=== PATIENT | male | born 1990 | race African-American/Black ===

== ENCOUNTER 2018-08-20 01:31 | Emergency (ER) | payer OTHER ==
[~2018-08-20] VITALS: Ht 195.6 cm; Wt 117.9 kg
[~2018-08-20 01:31] MED LIST: BACTRIM DS TAB1 EACH PO; IBUPROFEN 600600 M1 PO; IBUPROFEN 800800 M1 PO; NORCO 5-325 TA1 EACH PO; PENICILLIN V P500 MG PO
[2018-08-20 02:28] LABS: ABSOLUTE NEUTROPHILS 4.7 thou/uL (1.4-8.2); BASOPHILS 0.7 % (0.0-2.0); EOSINOPHILS 1.3 % (0.0-3.0); HEMATOCRIT 44.1 % (42.0-52.0); LYMPHOCYTES 15.7 % (24.0-44.0); MCH 30.9 pg (26.0-34.0); MCV 90.7 fL (80.0-100.0); MONOCYTES 8.8 % (1.0-8.0); PLATELET COUNT 306 thou/uL (150-400); POLYS 73.5 % (36.0-66.0); RBC 4.87 mil/uL (4.50-6.00); RDW 14.2 % (10.5-14.5); WBC 6.4 thou/uL (4.0-11.0)
[2018-08-20 02:36] LABS: CALCIUM 9.7 mg/dL (8.5-10.1); CREATININE 1.4 mg/dL (0.7-1.3); POTASSIUM 3.7 mmol/L (3.5-5.1)
[2018-08-20 02:37] VITALS: BP 176/65
[2018-08-20 02:41] LABS: ALBUMIN 4.2 g/dL (3.4-5.0); TOTAL BILIRUBIN 0.4 mg/dL (<0.1-1.0)
[2018-08-20] MEDS ORDERED: KEFLEX500 M1 PO (02:45)
== END 2018-08-20 03:02 | disposition home or self-care (01) ==
LOC: ER 01:31
PROVIDERS: Emergency Medicine
DX: S00.561A Insect bite (nonvenomous) of lip, initial encounter (principal); R22.0 Localized swelling, mass and lump, head; R00.0 Tachycardia, unspecified; W57.XXXA Bitten or stung by nonvenomous insect and other nonvenomous arthropods, initial encounter; Y93.89 Activity, other specified; Y92.89 Other specified places as the place of occurrence of the external cause; Y99.8 Other external cause status

== ENCOUNTER 2021-01-25 20:52 | Emergency (ER) | payer OTHER ==
[~2021-01-25] VITALS: Ht 193 cm; Wt 122.5 kg
[~2021-01-25 20:52] MED LIST changes: +KEFLEX500 M1 PO
[2021-01-25] MEDS ORDERED: ASA81BEC PO (21:02)
[2021-01-25 23:07] LABS: HEMATOCRIT 43.6 % (42.0-52.0); HEMOGLOBIN 14.6 gm/dL (14.0-18.0); MCHC 33.4 g/dL (28.0-37.0); MCV 92.7 fL (80.0-100.0); RBC 4.71 mil/uL (4.50-6.00); RDW 14.2 % (10.5-14.5); WBC 6.1 thou/uL (4.0-11.0)
[2021-01-25 23:19] LABS: CREATININE 1.5 mg/dL (0.7-1.3); POTASSIUM 3.2 mmol/L (3.5-5.1)
[2021-01-26] MEDS ORDERED: HYDROCODON-ACE1 EAC5 PO (00:23)
[2021-01-26] MEDS ORDERED: NAPROSYN500 MG PO (00:23)
[2021-01-26] MEDS ORDERED: KEFLEX500 M1 PO (00:23)
[2021-01-26 01:08] VITALS: BP 196/116
[2021-01-29] MEDS ORDERED: PREDNISONE 20 M20 MG PO (14:15)
[2021-01-29] MEDS ORDERED: VALACYCLOVIR1000 MG PO (14:15)
== END 2021-01-26 01:08 | disposition home or self-care (01) ==
LOC: ER 20:52
PROVIDERS: Nurse Practitioner Family
DX: I10 Essential (primary) hypertension (principal); L03.211 Cellulitis of face; Z79.82 Long term (current) use of aspirin

== ENCOUNTER 2021-01-28 08:01 | Emergency (ER) | payer OTHER ==
[~2021-01-28] VITALS: Ht 193 cm; Wt 117.9 kg
[~2021-01-28 08:01] MED LIST changes: +ASA81BEC PO; +HYDROCODON-ACE1 EAC5 PO; +NAPROSYN500 MG PO
[2021-01-28] MEDS ORDERED: NORVASC5 M1 PO (09:51)
[2021-01-28 10:03] VITALS: BP 176/111
--- NOTE | 2021-01-28 13:41 | EKG ---
[facility] [place] [address] ELECTROCARDIOGRAM REPORT Name: DAYTON GAINESAMBROCIORoman Room #: [facility]P [facility] [id number] Admission: 01/28/21 Attend Phys: Discharge: 01/28/21 Date of : 86 Report #: [id number] [facility] ED Test Date: 2021-01-28 Test Time: 08:17:06 Pat Name: DAYTON GAINES Department: Room: Gender: [employer] Supervisor: VIVIANE : 1990 Requested By: Lance Rider Order Number: [id number] MD: Dl Dixon Measurements Intervals [place] Rate: 94 P: 28 [place]: 165 QRS: 0 QRSD: 85 T: 36 QT: 383 QTc: 479 Interpretive Statements Sinus rhythm LVH by voltage J Point elevation, probably due to LVH Borderline prolonged QT interval No previous ECG available for comparison Electronically Signed On 01-28-2021 13:41:22 TOP SCREW by Dl Dixon [email or web address] <ELECTRONICALLY SIGNED> By: Dl Dixon MD, [facility] 01/28/21 1341 0817 6 Dl Dixon MD, FACC /EPI
[2021-01-29] MEDS ORDERED: VALACYCLOVIR1000 MG PO (14:15)
[2021-01-29] MEDS ORDERED: PREDNISONE 20 M20 MG PO (14:15)
== END 2021-01-28 10:05 | disposition home or self-care (01) ==
LOC: ER 08:01
DX: G51.0 Bell's palsy (principal); I10 Essential (primary) hypertension; Z79.82 Long term (current) use of aspirin; Z79.899 Other long term (current) drug therapy

== ENCOUNTER 2021-02-07 10:30 | Emergency (ER) | payer OTHER ==
[~2021-02-07] VITALS: Ht 195.6 cm; Wt 117.9 kg
[~2021-02-07 10:30] MED LIST changes: +NORVASC5 M1 PO; +PREDNISONE 20 M20 MG PO; +VALACYCLOVIR1000 MG PO
[2021-02-07 11:21] LABS: HEMATOCRIT 43.3 % (42.0-52.0); HEMOGLOBIN 14.6 gm/dL (14.0-18.0); MCHC 33.6 g/dL (28.0-37.0)
[2021-02-07 11:23] LABS: ABSOLUTE NEUTROPHILS 2.6 thou/uL (1.4-8.2); BASOPHILS 1.1 % (0.0-2.0); EOSINOPHILS 0.6 % (0.0-3.0); LYMPHOCYTES 47.4 % (24.0-44.0); MCH 31.4 pg (26.0-34.0); MCV 93.4 fL (80.0-100.0); MONOCYTES 9.3 % (1.0-8.0); PLATELET COUNT 373 thou/uL (150-400); POLYS 41.6 % (36.0-66.0); RBC 4.64 mil/uL (4.50-6.00); RDW 14.2 % (10.5-14.5); WBC 6.3 thou/uL (4.0-11.0)
[2021-02-07 11:27] LABS: CALCIUM 8.8 mg/dL (8.5-10.1); CREATININE 1.4 mg/dL (0.7-1.3); POTASSIUM 3.4 mmol/L (3.5-5.1)
[2021-02-07 11:34] LABS: ALBUMIN 3.6 g/dL (3.4-5.0); TOTAL BILIRUBIN 0.3 mg/dL (0.2-1.0); TOTAL PROTEIN 7.7 g/dL (6.4-8.2)
[2021-02-07] MEDS ORDERED: ULTRAM 50MG TAB50 MG PO (11:37)
[2021-02-07] MEDS ORDERED: CLEOCIN HCL150 MG PO (11:37)
[2021-02-07 11:58] VITALS: BP 173/119
== END 2021-02-07 12:03 | disposition home or self-care (01) ==
LOC: ER 10:30
PROVIDERS: Emergency Medicine
DX: L03.211 Cellulitis of face (principal); Z79.82 Long term (current) use of aspirin; Z79.899 Other long term (current) drug therapy

== ENCOUNTER 2021-05-28 12:20 | Emergency (ER) | payer OTHER ==
[~2021-05-28] VITALS: Ht 195.6 cm; Wt 117.9 kg
[~2021-05-28 12:20] MED LIST changes: +CLEOCIN HCL150 MG PO; +ULTRAM 50MG TAB50 MG PO
[2021-05-28] MEDS ORDERED: NAPROSYN500 MG PO (12:50)
[2021-05-28 13:09] VITALS: BP 193/145
== END 2021-05-28 13:09 | disposition home or self-care (01) ==
LOC: ER 12:20
DX: M13.871 Other specified arthritis, right ankle and foot (principal); I10 Essential (primary) hypertension

== ENCOUNTER 2021-06-05 12:24 | Emergency (ER) | payer OTHER ==
[~2021-06-05] VITALS: Ht 195.6 cm; Wt 117.9 kg
[2021-06-05 13:01] LABS: HEMATOCRIT 43.5 % (42.0-52.0); HEMOGLOBIN 15.1 gm/dL (14.0-18.0); MCH 32.5 pg (26.0-34.0); MCHC 34.8 g/dL (28.0-37.0); MCV 93.4 fL (80.0-100.0); RBC 4.66 mil/uL (4.50-6.00); RDW 13.6 % (10.5-14.5); WBC 5.3 thou/uL (4.0-11.0)
[2021-06-05 13:09] LABS: CALCIUM 9.2 mg/dL (8.5-10.1); CREATININE 1.4 mg/dL (0.7-1.3); POTASSIUM 3.8 mmol/L (3.5-5.1)
[2021-06-05 13:15] LABS: TOTAL BILIRUBIN 0.5 mg/dL (0.2-1.0); TOTAL PROTEIN 8.6 g/dL (6.4-8.2); URIC ACID* 7.5 mg/dL (3.5-7.2)
[2021-06-05] MEDS ORDERED: NORVASC10 MG PO (14:24)
[2021-06-05] MEDS ORDERED: ZESTRIL10 MG PO (14:24)
[2021-06-05] MEDS ORDERED: PREDNISONE 20 M20 MG PO (14:24)
[2021-06-05 14:44] VITALS: BP 210/141
== END 2021-06-05 14:44 | disposition home or self-care (01) ==
LOC: ER 12:24
PROVIDERS: Nurse Practitioner Family
DX: M10.9 Gout, unspecified (principal); I10 Essential (primary) hypertension; Z79.82 Long term (current) use of aspirin; Z79.899 Other long term (current) drug therapy; Z72.89 Other problems related to lifestyle